=== PATIENT | female | born 1995 | race Two or more races ===

== ENCOUNTER 2019-07-26 13:26 | Inpatient (IN) | payer MEDICAID ==
[~2019-07-26] VITALS: Ht 157.5 cm; Wt 98.9 kg
[2019-07-26] MEDS ORDERED: BUTORPHANOL TARTRATE 2 MG/ML VIAL IV PRN (15:30)
[2019-07-26] MEDS ORDERED: MISOPROSTOL 100MCG TABLET RC SCH (15:30)
[2019-07-26] MEDS ORDERED: CARBOPROST TROMETHAMINE 250 MCG/ML AMPUL IM PRN (15:30)
[2019-07-26] MEDS ORDERED: METHYLERGONOVINE MALEATE 0.2 MG/ML IM PRN (15:30)
[2019-07-26] MEDS ORDERED: LIDOCAINE HCL 1% 20ML VIAL (Pyxis) INJ INFIL SCH (15:30)
[2019-07-26] MEDS ORDERED: NALOXONE HCL 0.4 MG/ML 1ML VIAL IM PRN (15:30)
[2019-07-26] MEDS: LACTATED RINGERS 1,000 ML IV SCH ×2 (16:00→17:51)
[2019-07-26] MEDS ORDERED: DEXT 5%/LR + PITOCIN 20UNITS/L 1,000 ML IV SCH ×2 (16:00→20:55)
[2019-07-26] MEDS: CLINDAMYCIN 900 MG in DEXTROSE 5% WATER 50 ML IV SCH (17:00)
[2019-07-26 17:26] LABS: BASOPHILS % 0.7 % (0.0-2.0); EOSINOPHILS % 0.9 % (0.0-5.0); HEMATOCRIT. 33.9 % (36.0-48.0); HEMOGLOBIN. 10.9 g/dL (12.0-16.0); LYMPHOCYTES % 24.4 % (20.0-50.0); MEAN CORPUSCULAR HEMOGLOBIN 24.8 pg (28.0-32.0); MEAN CORPUSCULAR VOLUME 76.7 fL (81.0-99.0); MEAN PLATELET VOLUME 8.5 fl (7.4-10.4); MONOCYTES % 4.5 % (2.0-8.0); NEUTROPHILS % 69.5 % (40.0-76.0); PLATELET 600 x1000/uL (130-400); RED BLOOD CELL COUNT 4.42 mill/uL (4.2-5.4); RED CELL DISTRIBUTION WIDTH 14.4 % (11.6-14.6)
[2019-07-26 17:29] LABS: PARTIAL THROMBOPLASTIN TIME 24.8 sec (23.4-31.0); PROTHROMBIN TIME 10.4 sec (9.6-11.0)
[2019-07-26] MEDS ORDERED: ROPIVACAINE HCL/PF EPIDURAL 200 ML EPI SCH (17:30)
[2019-07-26 17:31] LABS: CHLORIDE 106 mEq/L (98-107); CLARITY URINE CLOUDY (CLEAR); COLOR URINE ORANGE (YELLOW); KETONES URINE 2+ (NEGATIVE); LEUKOCYTE ESTERASE URINE 1+ (NEGATIVE); NITRITE URINE NEGATIVE (NEGATIVE); OCCULT BLOOD URINE 1+ (NEGATIVE); PH URINE 5.5 (4.5-8.0); PROTEIN URINE 1+ (NEGATIVE); SPECIFIC GRAVITY URINE 1.028 (1.005-1.030)
[2019-07-26 17:50] LABS: *BARBITURATES SCREEN URINE NEGATIVE (NEGATIVE); *BENZODIAZEPINES SCREEN URINE NEGATIVE (NEGATIVE); *COCAINE SCREEN URINE NEGATIVE (NEGATIVE)
[2019-07-26 17:52] LABS: *AMPHETAMINES SCREEN URINE NEGATIVE (NEGATIVE); CANNABINOID URINE SCREEN NEGATIVE (NEGATIVE); METHADONE URINE SCREEN NEGATIVE (NEGATIVE); OPIATES URINE SCREEN NEGATIVE (NEGATIVE); PHENCYCLIDINE URINE SCREEN NEGATIVE (NEGATIVE)
[2019-07-26 18:07] LABS: HEPATITIS B SURFACE ANTIGEN NEGATIVE
[2019-07-26] MEDS ORDERED: IBUPROFEN 800MG TABLET PO PRN (21:00)
[2019-07-26] MEDS ORDERED: RHO(D) IMMUNE GLOBULIN 300 MCG/SYR IM PRN (21:00)
[2019-07-26] MEDS ORDERED: IBUPROFEN 400MG TABLET PO PRN (21:00)
[2019-07-26 22:00] VITALS: BP 111/65
[2019-07-26 22:30] VITALS: BP 124/79
[2019-07-27] MEDS: CLINDAMYCIN 900 MG in DEXTROSE 5% WATER 50 ML IV SCH (01:50)
[2019-07-27 08:08] LABS: BASOPHILS % 0.6 % (0.0-2.0); EOSINOPHILS % 0.9 % (0.0-5.0); HEMATOCRIT. 31.5 % (36.0-48.0); HEMOGLOBIN. 10.1 g/dL (12.0-16.0); LYMPHOCYTES % 29.5 % (20.0-50.0); MEAN CORPUSCULAR HEMOGLOBIN 24.3 pg (28.0-32.0); MEAN CORPUSCULAR VOLUME 76.1 fL (81.0-99.0); MEAN PLATELET VOLUME 8.6 fl (7.4-10.4); MONOCYTES % 6.6 % (2.0-8.0); NEUTROPHILS % 62.4 % (40.0-76.0); PLATELET 539 x1000/uL (130-400); RED BLOOD CELL COUNT 4.14 mill/uL (4.2-5.4); RED CELL DISTRIBUTION WIDTH 14.8 % (11.6-14.6)
[2019-07-27 08:20] VITALS: BP 108/90
[2019-07-27] MEDS ORDERED: LACTATED RINGERS 1,000 ML IV SCH (10:30)
[2019-07-27 16:39] VITALS: BP 111/90
[2019-07-27 20:00] VITALS: BP 112/88
[2019-07-28] VITALS: BP 114/87
[2019-07-28 04:00] VITALS: BP 112/89
[2019-07-28] MEDS ORDERED: IBUP-2030 PO (07:06)
[2019-07-28] MEDS ORDERED: MULT-1116 MT (07:06)
[2019-07-28] MEDS ORDERED: FERR325T6 MT (07:06)
[2019-07-28 08:10] VITALS: BP 95/57
== END 2019-07-28 11:00 | disposition home or self-care (01) | DRG 560 ==
LOC: 8 EST LDRP 13:26 → INTOOBSV 13:26 → OBSVTOIN 13:26 → 8 EST A/PP 21:45
PROVIDERS: ADMIT Obstetrics & Gynecology; ATTEND Obstetrics & Gynecology
PROC: 10E0XZZ Delivery of Products of Conception, External Approach (ICD-10-PCS; principal; 2019-07-26)
DX: O48.0 Post-term pregnancy (principal); Z37.0 Single live birth; Z3A.41 41 weeks gestation of pregnancy; Z88.0 Allergy status to penicillin
CPT/HCPCS: 36415; 80305; 81003; 86592; 86703; 86762; 86850; 86900; 87340; 99281; J2590; J3490; J7060; J7120

== ENCOUNTER 2020-09-21 03:41 | Inpatient (IN) | payer SELFPAY ==
[~2020-09-21] VITALS: Ht 157.5 cm; Wt 98.9 kg
[~2020-09-21 03:41] MED LIST: FERR325T6 MT; IBUP-2030 PO; MULT-1116 MT
[2020-09-21] MEDS ORDERED: LIDOCAINE HCL 1% 20ML VIAL (Pyxis) INJ INFIL SCH (05:00)
[2020-09-21] MEDS ORDERED: METHYLERGONOVINE MALEATE 0.2 MG/ML IM PRN (05:00)
[2020-09-21] MEDS ORDERED: NALOXONE HCL 0.4 MG/ML 1ML VIAL IM PRN (05:00)
[2020-09-21] MEDS ORDERED: MISOPROSTOL 200MCG TABLET ONE (05:00)
[2020-09-21] MEDS ORDERED: BUTORPHANOL TARTRATE 2 MG/ML VIAL IV PRN (05:00)
[2020-09-21] MEDS ORDERED: LACTATED RINGERS 1,000 ML IV SCH (05:00)
[2020-09-21] MEDS ORDERED: CLINDAMYCIN 900 MG PREMIX 50 ML IV SCH ×2 (05:30)
[2020-09-21 05:33] LABS: BASOPHILS % 0.3 % (0.0-2.0); EOSINOPHILS % 1.5 % (0.0-5.0); HEMATOCRIT. 32.1 % (36.0-48.0); LYMPHOCYTES % 30.9 % (20.0-50.0); MEAN CORPUSCULAR HEMOGLOBIN 21.3 pg (28.0-32.0); MEAN CORPUSCULAR VOLUME 68.1 fL (81.0-99.0); MEAN PLATELET VOLUME 8.1 fl (7.4-10.4); MONOCYTES % 5.1 % (2.0-8.0); NEUTROPHILS % 62.2 % (40.0-76.0); PLATELET 643 x1000/uL (130-400); RED BLOOD CELL COUNT 4.71 mill/uL (4.2-5.4); RED CELL DISTRIBUTION WIDTH 15.8 % (11.6-14.6)
[2020-09-21 05:46] LABS: PARTIAL THROMBOPLASTIN TIME 24.2 sec (23.4-31.0); PROTHROMBIN TIME 10.6 sec (9.6-11.0)
[2020-09-21 06:12] LABS: HEPATITIS B SURFACE ANTIGEN NEGATIVE
[2020-09-21] MEDS: DEXT 5%/LR + PITOCIN 20UNITS/L 1,000 ML IV SCH ×2 (07:11→08:36)
[2020-09-21 08:18] LABS: PLATELET ESTIMATE INCREASED
[2020-09-21 09:00] VITALS: BP 120/58
[2020-09-21 10:00] VITALS: BP 121/64
[2020-09-21 12:23] LABS: CLARITY URINE TURBID (CLEAR); KETONES URINE 2+ (NEGATIVE); LEUKOCYTE ESTERASE URINE 2+ (NEGATIVE); NITRITE URINE POSITIVE (NEGATIVE); OCCULT BLOOD URINE 3+ (NEGATIVE); PH URINE 5.5 (4.5-8.0); PROTEIN URINE 1+ (NEGATIVE); SPECIFIC GRAVITY URINE 1.028 (1.005-1.030)
[2020-09-21 12:31] LABS: COLOR URINE BLOODY (YELLOW)
[2020-09-21 13:34] LABS: *BARBITURATES SCREEN URINE NEGATIVE (NEGATIVE); *BENZODIAZEPINES SCREEN URINE NEGATIVE (NEGATIVE); *COCAINE SCREEN URINE NEGATIVE (NEGATIVE); CANNABINOID URINE SCREEN NEGATIVE (NEGATIVE); METHADONE URINE SCREEN NEGATIVE (NEGATIVE); OPIATES URINE SCREEN NEGATIVE (NEGATIVE)
[2020-09-21 13:37] LABS: PHENCYCLIDINE URINE SCREEN NEGATIVE (NEGATIVE)
[2020-09-21 13:39] LABS: *AMPHETAMINES SCREEN URINE NEGATIVE (NEGATIVE)
[2020-09-21 15:42] VITALS: BP 119/67
[2020-09-21] MEDS ORDERED: IBUPROFEN 400MG TABLET PO PRN (17:00)
[2020-09-21] MEDS ORDERED: ACETAMINOPHEN WITH CODEINE 300/30MG TABLET PO PRN (17:00)
[2020-09-21] MEDS ORDERED: IBUPROFEN 800MG TABLET PO PRN (17:00)
[2020-09-21] MEDS ORDERED: DEXT 5%/LR + PITOCIN 20UNITS/L 1,000 ML IV SCH (17:00)
[2020-09-21] MEDS ORDERED: LANOLIN OINT 7GM TUBE TOP PRN (17:00)
[2020-09-21 19:35] VITALS: BP 101/62
[2020-09-22] MEDS ORDERED: IBUP-2030 PO (03:01)
[2020-09-22 04:30] VITALS: BP 102/66
[2020-09-22 07:43] LABS: BASOPHILS % 0.8 % (0.0-2.0); EOSINOPHILS % 2.6 % (0.0-5.0); HEMATOCRIT. 30.1 % (36.0-48.0); HEMOGLOBIN. 9.3 g/dL (12.0-16.0); LYMPHOCYTES % 42.8 % (20.0-50.0); MEAN CORPUSCULAR HEMOGLOBIN 21.2 pg (28.0-32.0); MEAN CORPUSCULAR VOLUME 68.4 fL (81.0-99.0); MEAN PLATELET VOLUME 8.3 fl (7.4-10.4); MONOCYTES % 4.8 % (2.0-8.0); PLATELET 596 x1000/uL (130-400); RED BLOOD CELL COUNT 4.39 mill/uL (4.2-5.4); RED CELL DISTRIBUTION WIDTH 16.7 % (11.6-14.6)
[2020-09-22 07:56] VITALS: BP 118/61
== END 2020-09-22 11:55 | disposition home or self-care (01) | DRG 560 ==
LOC: 8 EST LDRP 03:41 → OBSVTOIN 03:41 → 8EST 09:29
PROVIDERS: ADMIT Specialist; ATTEND Specialist
PROC: 10E0XZZ Delivery of Products of Conception, External Approach (ICD-10-PCS; principal; 2020-09-21)
DX: O99.02 Anemia complicating childbirth (principal); O99.214 Obesity complicating childbirth; E66.9 Obesity, unspecified; D64.9 Anemia, unspecified; Z37.0 Single live birth; Z3A.38 38 weeks gestation of pregnancy
CPT/HCPCS: 36415; 80305; 81003; 85025; 86592; 86703; 86762; 86850; 86900; 87340; J2590; J3490

== ENCOUNTER 2021-01-10 22:33 | Emergency (ER) | payer MEDICAID ==
[~2021-01-10] VITALS: Ht 157.5 cm; Wt 91.0 kg
[2021-01-10 23:56] VITALS: BP 118/72
[2021-01-11] MEDS ORDERED: VISCOUS LIDOCAINE 2% 15 ML UDC PO STA (02:01)
[2021-01-11] MEDS ORDERED: MAGNESIUM/ALUMINUM HYDROXIDE/SIMETHICONE 30ML UDC PO STA (02:01)
[2021-01-11] MEDS ORDERED: SODIUM CHLORIDE 0.9% 1,000 ML IV ONE (02:15)
[2021-01-11] MEDS ORDERED: FAMOTIDINE 20MG TABLET PO ONE (02:15)
[2021-01-11 02:18] LABS: BASOPHILS % 0.6 % (0.0-2.0); HEMOGLOBIN. 10.3 g/dL (12.0-16.0); LYMPHOCYTES % 23.5 % (20.0-50.0); MEAN CORPUSCULAR HEMOGLOBIN 20.2 pg (28.0-32.0); MEAN CORPUSCULAR VOLUME 66.5 fL (81.0-99.0); MEAN PLATELET VOLUME 7.8 fl (7.4-10.4); MONOCYTES % 5.4 % (2.0-8.0); NEUTROPHILS % 69.5 % (40.0-76.0); PLATELET 788 x1000/uL (130-400); RED BLOOD CELL COUNT 5.11 mill/uL (4.2-5.4); RED CELL DISTRIBUTION WIDTH 16.5 % (11.6-14.6)
[2021-01-11 02:25] LABS: CHLORIDE 109 mEq/L (98-107)
[2021-01-11 02:42] LABS: CLARITY URINE CLEAR (CLEAR); COLOR URINE YELLOW (YELLOW); KETONES URINE TRACE (NEGATIVE); LEUKOCYTE ESTERASE URINE 1+ (NEGATIVE); NITRITE URINE POSITIVE (NEGATIVE); OCCULT BLOOD URINE NEGATIVE (NEGATIVE); PH URINE 5.5 (4.5-8.0); PROTEIN URINE NEGATIVE (NEGATIVE); SPECIFIC GRAVITY URINE 1.027 (1.005-1.030); UROBILINOGEN URINE 0.2 E.U./dL (0.2-1.0)
[2021-01-11] MEDS ORDERED: NITR-87 MT (03:17)
[2021-01-11] MEDS ORDERED: OMEP20CA14 MT (03:18)
[2021-01-11] MEDS ORDERED: MAG-55 MT (03:18)
[2021-01-11 04:23] LABS: PLATELET ESTIMATE INCREASED
== END 2021-01-11 03:46 | disposition home or self-care (01) ==
LOC: ER 22:33
DX: N39.0 Urinary tract infection, site not specified (principal); K21.9 Gastro-esophageal reflux disease without esophagitis; Z79.899 Other long term (current) drug therapy; Z88.0 Allergy status to penicillin
CPT/HCPCS: 36415; 80053; 81003; 83690; 85025; 93005; 99284; J7030

== ENCOUNTER 2024-06-22 13:29 | Emergency (ER) | payer MEDICAID, OTHER ==
[~2024-06-22 13:29] MED LIST changes: +MAG-55 MT; +NITR-87 MT; +OMEP20CA14 MT
[2024-06-22 14:09] LABS: DIFFERENTIAL COMMENT 0; HEMATOCRIT. 33.8 % (36.0-48.0); HEMOGLOBIN. 10.8 g/dL (12.0-16.0); LYMPHOCYTES % 30.3 % (20.0-50.0); MEAN CORPUSCULAR HEMOGLOBIN 22.9 pg (28.0-32.0); MEAN CORPUSCULAR VOLUME 71.7 fL (81.0-99.0); MEAN PLATELET VOLUME 7.8 fl (7.4-10.4); MONOCYTES % 8.6 % (2.0-8.0); NEUTROPHILS % 57.1 % (40.0-76.0); PLATELET 782 x1000/uL (130-400); RED BLOOD CELL COUNT 4.71 mill/uL (4.2-5.4); RED CELL DISTRIBUTION WIDTH 16.1 % (11.6-14.6)
[2024-06-22 14:15] LABS: CHLORIDE 108 mEq/L (98-107); POTASSIUM 3.7 mEq/L (3.5-5.1); SODIUM 138 mEq/L (136-145)
[2024-06-22 14:16] LABS: CARBON DIOXIDE 20 mEq/L (21-32)
[2024-06-22 14:17] LABS: CALCIUM 9.4 mg/dL (8.7-10.4)
[2024-06-22 14:21] LABS: CREATININE 0.6 mg/dL (0.6-1.0); GLUCOSE 87 mg/dL (70-105); UREA NITROGEN BLOOD 7 mg/dL (9-23)
[2024-06-22 14:22] LABS: INR 0.9; PROTHROMBIN TIME 10.6 sec (9.6-11.0)
[2024-06-22 14:23] LABS: ALANINE AMINOTRANSFERASE 21 IU/L (10-49); ASPARTATE AMINOTRANSFERASE 32 IU/L (<34); BILIRUBIN DIRECT 0.2 mg/dL (<=3.0)
[2024-06-22 14:24] LABS: BILIRUBIN TOTAL 0.9 mg/dL (0.1-1.0); PROTEIN TOTAL 7.5 g/dL (6.0-8.3)
[2024-06-22] MEDS: SODIUM CHLORIDE 0.9% 1,000 ML IV ONE (14:28)
[2024-06-22 14:39] VITALS: BP 141/85; PULSE 89; RESP 16; TEMP 36.89184; O2SAT 100
[2024-06-22 14:39] LABS: B-HCG QUANTITATIVE 18240 mIU/mL (<3)
== END 2024-06-22 14:47 | disposition short-term general hospital (02) ==
LOC: ER 13:37
DX: O99.113 Other diseases of the blood and blood-forming organs and certain disorders involving the immune mechanism complicating pregnancy, third trimester (principal); O47.1 False labor at or after 37 completed weeks of gestation; Z3A.37 37 weeks gestation of pregnancy; Z79.899 Other long term (current) drug therapy; Z88.0 Allergy status to penicillin
CPT/HCPCS: 99285; 96360; 80076; 80048; 84702; 85025; 85610; 36415; 76815; 93005; J7030

== ENCOUNTER 2024-08-03 18:45 | Emergency (ER) | payer OTHER ==
[~2024-08-03] VITALS: Ht 157.5 cm; Wt 102.0 kg
[2024-08-03 19:02] VITALS: O2SAT 99
[2024-08-03 19:29] LABS: CLARITY URINE CLEAR (CLEAR); COLOR URINE DARK YELLOW (YELLOW); GLUCOSE URINE NEGATIVE (NEGATIVE); KETONES URINE TRACE (NEGATIVE); LEUKOCYTE ESTERASE URINE 1+ (NEGATIVE); NITRITE URINE NEGATIVE (NEGATIVE); OCCULT BLOOD URINE TRACE (NEGATIVE); PROTEIN URINE 1+ (NEGATIVE); SPECIFIC GRAVITY URINE 1.037 (1.005-1.030)
[2024-08-03 19:43] LABS: BACTERIA URINE 1+; RBC URINE 0-2 /hpf (0-2); SQUAMOUS EPITHELIAL CELL URINE 2+ /lpf (RARE/1+)
[2024-08-03 19:51] LABS: BASOPHILS % 0.5 % (0.0-2.0); DIFFERENTIAL COMMENT 0; EOSINOPHILS % 2.7 % (0.0-5.0); HEMATOCRIT. 39.6 % (36.0-48.0); HEMOGLOBIN. 12.4 g/dL (12.0-16.0); LYMPHOCYTES % 22.7 % (20.0-50.0); MEAN CORPUSCULAR HEMOGLOBIN 23.9 pg (28.0-32.0); MEAN CORPUSCULAR HGB CONC 31.3 g/dL (31.0-37.0); MEAN CORPUSCULAR VOLUME 76.5 fL (81.0-99.0); MEAN PLATELET VOLUME 8.6 fl (7.4-10.4); MONOCYTES % 4.6 % (2.0-8.0); NEUTROPHILS % 69.5 % (40.0-76.0); PLATELET 521 x1000/uL (130-400); RED BLOOD CELL COUNT 5.18 mill/uL (4.2-5.4); RED CELL DISTRIBUTION WIDTH 21.4 % (11.6-14.6); WHITE BLOOD COUNT 9.8 x1000/uL (4.5-11.0)
[2024-08-03 19:56] LABS: CARBON DIOXIDE 25 mEq/L (21-32); CHLORIDE 109 mEq/L (98-107); SODIUM 140 mEq/L (136-145)
[2024-08-03 20:02] LABS: CREATININE 0.6 mg/dL (0.6-1.0); GLUCOSE 100 mg/dL (70-105); UREA NITROGEN BLOOD 13 mg/dL (9-23)
[2024-08-03 20:03] LABS: ALANINE AMINOTRANSFERASE 129 IU/L (10-49); ALBUMIN 4.2 g/dL (3.2-4.8); ASPARTATE AMINOTRANSFERASE 172 IU/L (<34)
[2024-08-03 20:04] LABS: BILIRUBIN DIRECT 0.2 mg/dL (<=3.0); BILIRUBIN TOTAL 0.6 mg/dL (0.1-1.0); PROTEIN TOTAL 7.4 g/dL (6.0-8.3)
[2024-08-03 20:06] LABS: HCG SCREEN NEGATIVE
[2024-08-03] MEDS ORDERED: ONDANSETRON HCL 4MG/2ML INJ IV STA (20:27)
[2024-08-03] MEDS ORDERED: KETOROLAC 30MG/ML VIAL IV STA (20:27)
[2024-08-03] MEDS ORDERED: CEFTRIAXONE 2GM/50ML 50 ML IV ONE (22:15)
[2024-08-03] MEDS ORDERED: METRONIDAZOLE 500 MG PREMIX 100 ML IV ONE (22:15)
[2024-08-04] MEDS: ONDANSETRON HCL 4MG/2ML INJ IV NR (00:17)
[2024-08-04] MEDS: METRONIDAZOLE 500 MG PREMIX 100 ML IV NR (00:17)
[2024-08-04] MEDS: KETOROLAC 30MG/ML VIAL IV NR (00:17)
[2024-08-04] MEDS: MORPHINE SULFATE 4 MG/ML INJ (FOR IV/IM USE) IV ONE (01:02)
[2024-08-04] MEDS: CEFTRIAXONE 2GM/50ML 50 ML IV NR (01:03)
[2024-08-04 01:32] VITALS: TEMP 98
[2024-08-04 02:29] VITALS: BP 131/65; PULSE 70; RESP 21; O2SAT 99
== END 2024-08-04 03:20 | disposition left against medical advice (07) ==
LOC: ER 18:45
DX: K85.10 Biliary acute pancreatitis without necrosis or infection (principal); K80.00 Calculus of gallbladder with acute cholecystitis without obstruction; Z88.0 Allergy status to penicillin; Z79.899 Other long term (current) drug therapy
CPT/HCPCS: 99291; 76700; 80076; 80048; 81003; 84703; 83690; 85025; 36415; 96365; 96375; 96367; J1885; J3490; J2405; J0696; J2270